=== PATIENT | male | born 1945 | race Caucasian/White ===

== ENCOUNTER 2016-07-12 08:46 | Day surgery (SDC) | payer MEDICARE ==
[2016-07-06 15:14] VITALS: BMI 23.0
[~2016-07-12 08:46] MED LIST: LIDOCAINE 1% 20 ML VIAL (10MG/ML) FOR IV START INTRADERMA PRN
[2016-07-12 09:40] VITALS: RESP 16; TEMP 98
[2016-07-12] MEDS: LACTATED RINGERS 1,000 ML IV SCH ×2 (09:54→11:00)
[2016-07-12] MEDS ORDERED: GLYCOPYRROLATE 0.2 MG/ML 2 ML VIAL ONE (11:02)
[2016-07-12] MEDS ORDERED: PROPOFOL 10 MG/ML 20 ML VIAL IV ONE (11:02)
[2016-07-12] MEDS ORDERED: LIDOCAINE 1% INJ 10MG/ML (20 ML MDV) ONE (11:02)
--- NOTE | 2016-07-12 11:34 | P.PCN ---
Date of Procedure: 07/12/16 Procedure(s) Performed: Procedure: Esophagogastroduodenoscopy and biopsy. Preoperative diagnosis: Epigastric pain not responding to medical therapy. Postoperative diagnosis: 1. Moderately sized hiatal hernia with no obvious esophagitis or complicated reflux disease. 2. Mild gastritis and duodenitis. 3. Multiple biopsies obtained from the duodenum, antrum and esophagus. Preparation and sedation: Was provided by anesthesia. Brief clinical history: The patient is a 70-year-old male who is referred for this evaluation because of onset of stomach ache that he has been having for the last 3 months or so not responding to Zantac and more recently on omeprazole. The patient has history of rectal cancer and had low anterior resection in the past and has history of diverticulosis. His last colonoscopy with Dr. Dumont was within the last year or so. This evaluation is to assess for peptic ulcer disease or other pathology. Procedure: With the patient on his left lateral decubitus position and after informed consent and adequate sedation, the Olympus-GIF 160 video upper endoscope was used and was advanced under direct vision through the cricopharyngeus down the esophagus. GE junction was around 36 cm from the incisors and there was a moderately sized hiatal hernia. There was no evidence of esophagitis or complicated reflux disease. The stomach was then insufflated with air and inspected in detail including the retroflex view in the cardia. There was some mottling and erythema in the antrum but no ulcers or erosions. Pyloric channel did not show any ulcers. Duodenal bulb, post bulbar area and descending duodenum showed minimal erythema but no ulcers or erosions. I obtained multiple biopsies from the duodenum, antrum and esophagus then the endoscope was withdrawn. The patient tolerated the procedure well. Plan: The patient was reassured. Will await biopsy results. He will follow up with you as planned and I will be happy to see in the office of his symptoms persist.
[2016-07-12 11:45] VITALS: BP 158/68; PULSE 61
== END 2016-07-12 12:06 | disposition home or self-care (01) ==
LOC: ORWHC2ENDO 08:46
DX: K29.50 Unspecified chronic gastritis without bleeding (principal); K44.9 Diaphragmatic hernia without obstruction or gangrene; Z85.048 Personal history of other malignant neoplasm of rectum, rectosigmoid junction, and anus; K29.80 Duodenitis without bleeding; K21.0 Gastro-esophageal reflux disease with esophagitis; E78.5 Hyperlipidemia, unspecified; J44.9 Chronic obstructive pulmonary disease, unspecified; M06.9 Rheumatoid arthritis, unspecified; Z88.5 Allergy status to narcotic agent; Z88.8 Allergy status to other drugs, medicaments and biological substances
CPT/HCPCS: 88305; 88342; 43239; J2001; J2704

== ENCOUNTER → 2016-08-04 | Outpatient (CLI) | payer MEDICARE ==
--- NOTE | 2016-08-04 09:28 | US ---
EXAMINATION TYPE: US abdomen complete DATE OF EXAM: 08/04/2016 7:40 AM COMPARISON: None CLINICAL HISTORY: 70-year-old male K44.9 Hiatal hernia,R10.13 epigastric pain. Hx of AAA repair a few years ago. TECHNIQUE: Multiple sonographic images of the abdomen are obtained. FINDINGS: Liver Length: 15.3 cm Gallbladder Wall: 0.2 cm CHD: 7.3 mm Spleen: 9.4 cm Right Kidney: 10.2 x 5.8 x 4.5 cm Left Kidney: 11.3 x 5.2 x 4.0 cm Pancreas: body and tail not visualized due to overlying bowel gas Liver: Overall homogeneous echotexture without focal lesion. Gallbladder: No abnormal gallbladder distention, wall thickening, pericholecystic fluid, or shadowin g calculi. Evidence for sonographic Black's sign: neg CBD: Mildly dilated. Spleen: suboptimally visualized due to overlying bowel gas Right Kidney: No hydronephrosis. Multiple cysts. Largest seen lower pole = 2.6 x 2.6 x 2.1 cm Left Kidney: No hydronephrosis. There are multiple cysts. Largest seen in the mid pole measures up to 2.4 cm. There is a hypoechoic lesion medially at the upper pole measuring 1.2 cm probably represen ting a complicated cyst. Upper IVC: Grossly unremarkable Abd Aorta: portions not well visualized due to overlying bowel gas IMPRESSION: 1. The bile duct is mildly dilated at 7.3 mm. This may be acceptable given the patient's age. Correla te with alkaline phosphatase and bilirubin levels. 2. Bilateral renal cysts measuring up to 2.6 cm. A 1.2 cm left upper pole cortical lesion is hypoecho ic. This could represent a proteinaceous or hemorrhagic cyst versus a small early solid mass. The for trisha is favored. Six-month follow-up renal ultrasound recommended.
== END | disposition home or self-care (01) ==
LOC: RADUSWWP 06:54
PROVIDERS: ATTEND Family Medicine
DX: K83.8 Other specified diseases of biliary tract (principal); N28.1 Cyst of kidney, acquired
CPT/HCPCS: 76700

== ENCOUNTER → 2017-08-04 | Outpatient (CLI) | payer MEDICARE ==
--- NOTE | 2017-08-04 12:41 | CT ---
EXAMINATION TYPE: CT abdomen pelvis w con DATE OF EXAM: 08/04/2017 COMPARISON: NONE HISTORY: Generalized abdominal pain CT DLP: 1028 mGycm Automated exposure control for dose reduction was used. TECHNIQUE: Helical acquisition of images from the lung bases through the pelvis have been completed. CONTRAST: Performed with Oral Contrast and with IV Contrast, patient injected with 100 mL of Isovue 300. FINDINGS: Intrathoracic stomach is again noted. LUNG BASES: No significant abnormality is appreciated. AORTA: Interval improvement in diameter of the patient's abdominal aorta compatible with postsurgica l change status post abdominal aortic resection, common femoral limbs, external iliac, common femoral arteries are patent. Internal iliac artery on the right is patent, on the left and may be filling re trograde. LIVER/GB: No significant abnormality is appreciated. PANCREAS: No significant abnormality is seen. SPLEEN: No significant abnormality is seen. ADRENALS: No significant abnormality is seen. KIDNEYS: Hyperdense foci associated with the right kidney are again noted and could possibly represen t proteinaceous cyst, there are cortical cysts associated with the left kidney as on prior. REPRODUCTIVE ORGANS: No significant abnormality is seen BOWEL: Multiple bowel loops show focal areas of wall thickening which are indeterminate. Surgical cl ips present in the rectosigmoid junction, rectum.. FREE AIR: No Free Air visible. ASCITES: None visible. PELVIC ADENOPATHY: None visualized. RETROPERITONEAL ADENOPATHY: No Retroperitoneal Adenopathy visible. URINARY BLADDER: No significant abnormality is seen. OSSEOUS STRUCTURES: Suspect bilateral spondylolysis at L5 as on prior exam, there is multilevel face t arthropathy, degenerative disc change. IMPRESSION: NONSPECIFIC WALL THICKENING NOTED WITHIN PREDOMINANTLY SMALL BOWEL LOOPS IS AN INDETERMINATE FINDING. THERE COULD BE LACK OF DISTENTION, ENTERITIS OR INFLAMMATORY CHANGE PRESENT. FINDINGS IN THE RIGHT K IDNEY DESCRIBED ARE RELATIVELY STABLE. POSTOP CHANGES. Additional findings above.
== END ==
LOC: RADCTMAIN 09:41
PROVIDERS: ATTEND Family Medicine
DX: N28.1 Cyst of kidney, acquired (principal); K21.9 Gastro-esophageal reflux disease without esophagitis; Z98.890 Other specified postprocedural states
CPT/HCPCS: 74177; Q9967

== ENCOUNTER → 2017-09-08 | Outpatient (CLI) | payer MEDICARE ==
--- NOTE | 2017-09-08 09:08 | FL ---
EXAMINATION TYPE: FL UGI w small bowel DATE OF EXAM: 09/08/2017 COMPARISON: CT abdomen and pelvis August 04, 2017 and older study July 11, 2013 HISTORY: Abnormal CT, complains of lower abdominal pain. History of partial colectomy for colon cance r. TECHNIQUE: A double contrast UGI study is performed with small bowel follow through. A total of 1 mi nute 31 seconds of fluoroscopic time was utilized during procedure. Approximately 25 spot images were acquired during procedure. FINDINGS: Sheet Music Salesperson image of the abdomen shows numerous clips mid abdomen and overlying pelvis from prio r colonic surgery. There is overall nonobstructive bowel gas pattern The esophagus shows some dysmotility with abnormal secondary and tertiary contractions. There is pers istent large hiatal hernia or intrathoracic stomach that has malrotation or mixed twisting pattern, t his is chronic in age as is back identified on 2014 CT without significant interval change. Majority of stomach is above the diaphragm with mild to moderate gastric fold prominence. No daquan ul cer disease. Occasional episodes of gastroesophageal reflux are identified during real-time performan ce of exam. The duodenal bulb and sweep redemonstrated a 3 cm diverticulum along mesenteric surface o f second portion. The small bowel study shows rapid transit to the colon in less than 10 minutes. There is normal muco baldev fold pattern throughout the small bowel on current study with particular attention to proximal sm all bowel at area of CT concern. There is no evidence of any stricture or filling defect noted. The terminal ileum is grossly unremarkable. IMPRESSION: Redemonstration of fixed large hiatal hernia or intrathoracic stomach with abnormal twist ing pattern, there is esophageal dysmotility and gastroesophageal reflux. There is mild to moderate g astritis in the intrathoracic stomach. Incidental duodenal diverticulum. Unusual fairly rapid passage of ingested material to colonic level of uncertain clinical significance. No suspicion for active en teritis currently.
== END | disposition home or self-care (01) ==
LOC: RADFLMAIN 07:43
PROVIDERS: ATTEND Surgery
DX: K21.9 Gastro-esophageal reflux disease without esophagitis (principal); K22.4 Dyskinesia of esophagus; K29.70 Gastritis, unspecified, without bleeding
CPT/HCPCS: 74245

== ENCOUNTER → 2019-02-12 | Outpatient (CLI) | payer MEDICARE ==
--- NOTE | 2019-02-12 14:13 | CT ---
EXAMINATION TYPE: CT abdomen pelvis w con DATE OF EXAM: 02/12/2019 COMPARISON: 08/04/2017 HISTORY: 73-year-old male periumbilical pain with history of prior umbilical hernia repair. TECHNIQUE: Contiguous axial scanning of the abdomen and pelvis following administration of 80 ml Isov ue 300 IV contrast. Delayed images through the kidneys and coronal/sagittal reconstructions performe d. CT DLP: 907 mGycm Automated exposure control for dose reduction was used. FINDINGS: Heart normal size without pericardial effusion. Lung bases clear without pleural effusion. Large hiatal hernia containing the majority of the stomach in the lower thorax. Subcentimeter hypodensity in segment 3 and segment IVb left liver lobe too small for accurate CT dorcas acterization, stable from 2018 compatible with cysts. Stable mild prominence of the bile duct. Small diverticulum of the second portion of the duodenum projecting to the pancreatic region. Portal venous system is patent. Gallbladder, adrenal glands, spleen, pancreas appear within normal limits. Multiple bilateral renal cysts are redemonstrated, largest measuring 2.8 cm on the right and 2.0 cm o n the left. A mildly complex and complicated cysts with thin internal septation at the right lower po le measures 3.4 cm versus 3.3 cm, previously. It shows no change in density between the portal venous phase and delayed kidney images with attenuation of around 55 Hounsfield units compatible with a ros aceous or hemorrhagic cyst with mild complexity. An additional indeterminate 1.3 cm cortical lesion anterior upper to mid pole left kidney previously measured 1.1 cm. Indolent behavior suggests a benign etiology here as well. 7 mm cortical hypodensity anterior lower pole left kidney previously measured 5 mm. Again, benign etiology is suggested. No dilated small bowel, free fluid, or free air. Aortobiiliac stent grafts are present. No endoleak is identified. Overall aortic caliber of 2.5 cm no t significantly changed. There is aortic ectasia of the thoracoabdominal junction at 2.8 cm. Moderate stool burden. No pericolonic inflammatory change. Prior mesh repair along the ventral epigastric region. No evident recurrent hernia is identified here . No other ventral abdominal wall hernia. Prominent distention of the urinary bladder. Prostate gland measures 4.2 cm wide. Post surgical changes at the rectoanal junction with associated perirectal thickening, unchanged from 08/04/2017 suggesting postsurgical change or redundant tissue. No abnormal fluid collection the pelvi s or pelvic lymphadenopathy. Bones: Mild degenerative changes at the hips. Moderate to severe degenerative changes of bilateral SI joints. Advanced hypertrophic facet arthropathy throughout the lumbar spine with Baastrup's disease and accentuated lumbar lordosis. Grade 1 anterolisthesis at L3-L4 and L4-L5 and grade 1 retrolisthesi s at T12-L1 and L1-L2. Severe degenerative disc disease L1-L2. IMPRESSION: 1. PRIOR MESH REPAIR ALONG THE VENTRAL EPIGASTRIUM. NO RECURRENT HERNIA IS IDENTIFIED HERE. NO OTHER VENTRAL ABDOMINAL WALL HERNIA. 2. NUMEROUS RENAL LESIONS MEASURING UP TO 3.4 CM, A COUPLE OF WHICH REPRESENT HEMORRHAGIC OR PROTEINA CEOUS CYSTS. ONE IN THE RIGHT LOWER POLE IS MILDLY COMPLEX WITH A THIN SEPTATION. A FEW OF THESE ARE SLIGHTLY LARGER FROM 08/04/2017. HOWEVER, RELATIVE STABILITY FROM THAT TIME SUPPORTS A BENIGN ETIOLOGY. 3. POST SURGICAL CHANGE WITH PRIOR RESECTION AND ANASTOMOSIS AT THE RECTOANAL JUNCTION. PERIRECTAL SO FT TISSUE THICKENING AT THIS LEVEL IS STABLE FROM 08/04/2017, LIKELY REDUNDANT TISSUE OR POSTSURGICAL CHANGE. 4. REDEMONSTRATED LARGE HIATAL HERNIA CONTAINING NEARLY THE ENTIRE STOMACH WITHIN THE LOWER THORAX.
== END | disposition home or self-care (01) ==
LOC: RADCTMAIN 11:28
PROVIDERS: ATTEND Family Medicine
DX: K44.9 Diaphragmatic hernia without obstruction or gangrene (principal); N28.9 Disorder of kidney and ureter, unspecified; K62.89 Other specified diseases of anus and rectum; Z98.890 Other specified postprocedural states; Z01.812 Encounter for preprocedural laboratory examination
CPT/HCPCS: 82565; 84520; 74177; 36415; Q9967 ×2

== ENCOUNTER 2019-12-27 07:32 | Day surgery (SDC) | payer MEDICARE ==
[~2019-12-27 07:32] MED LIST changes: +LACTATED RINGERS 1,000 ML IV SCH; +LIDOCAINE 1% (10MG/ML) FOR IV START INTRADERMA PRN; -LIDOCAINE 1% 20 ML VIAL (10MG/ML) FOR IV START INTRADERMA PRN
[2019-12-27 08:34] VITALS: RESP 16; TEMP 96.7
[2019-12-27] MEDS ORDERED: PROPOFOL 10 MG/ML 20 ML VIAL IV ONE (09:12)
[2019-12-27] MEDS ORDERED: LIDOCAINE 1% INJ 10MG/ML (20 ML MDV) ONE (09:12)
--- NOTE | 2019-12-27 09:33 | P.PCN ---
Date of Procedure: 12/27/19 Procedure(s) Performed: BRIEF HISTORY: Patient is a 74-year-old pleasant white scheduled for an elective colonoscopy as a part of surveillance of prior history of colon cancer diagnosed in 1996. Last colonoscopy was 4 years ago. PROCEDURE PERFORMED: Colonoscopy with snare polypectomy. PREOPERATIVE DIAGNOSIS: History of colon cancer status post resection in 1996. IV sedation per Anesthesia. PROCEDURE: After informed consent was obtained, the patient, was brought into the endoscopy unit. IV sedation was administered by Anesthesia under continuous monitoring. Digital rectal examination was normal. Initially the Olympus CF-160 flexible video colonoscope was then inserted in the rectum, gradually advanced into the cecum without any difficulty. Careful examination was performed as the scope was gradually being withdrawn. Ileocecal valve and the appendiceal orifice were visualized and appeared normal. Prep was excellent. In the base of the cecum there were 2 polyps measuring 5 mm and 6 mm in size both of which were removed by snare polypectomy. Mucosa of the cecum, ascending colon, transverse colon, descending colon appeared normal. The sigmoid colon there were 2 polyps measuring 5 mm in size both of which were removed by snare polypectomy. Moderate left-sided diverticulosis seen. Rest of the, sigmoid colon, and rectum appeared normal. Retroflexion was performed in the rectum and no lesions were seen. The patient tolerated the procedure well. IMPRESSION: 5 mm and 6 mm cecal polyp status post polypectomy 5 mm 2 sigmoid polyps status post polypectomy Scattered sigmoid diverticulosis RECOMMENDATIONS: Findings of this examination were discussed with the patient as well as his family. He was advised to follow with the biopsy results. If the biopsy shows an adenoma he can have a repeat colonoscopy in 3 years
[2019-12-27 10:06] VITALS: BP 142/65; PULSE 47
== END 2019-12-27 10:15 | disposition home or self-care (01) ==
LOC: ORWHC2ENDO 07:32
PROVIDERS: ATTEND Internal Medicine Gastroenterology
DX: Z12.11 Encounter for screening for malignant neoplasm of colon (principal); D12.5 Benign neoplasm of sigmoid colon; K63.5 Polyp of colon; K57.30 Diverticulosis of large intestine without perforation or abscess without bleeding; J44.9 Chronic obstructive pulmonary disease, unspecified; K21.9 Gastro-esophageal reflux disease without esophagitis; E78.5 Hyperlipidemia, unspecified; M06.9 Rheumatoid arthritis, unspecified; Z85.038 Personal history of other malignant neoplasm of large intestine; Z90.49 Acquired absence of other specified parts of digestive tract; Z88.5 Allergy status to narcotic agent; Z88.8 Allergy status to other drugs, medicaments and biological substances; Z79.1 Long term (current) use of non-steroidal anti-inflammatories (NSAID); Z79.899 Other long term (current) drug therapy
CPT/HCPCS: 88305; 45385; J2001; J2704

== ENCOUNTER → 2020-06-02 | Outpatient (CLI) | payer MEDICARE ==
--- NOTE | 2020-06-02 14:54 | XR ---
EXAM TYPE: LUMBAR SPINE X RAY SERIES COMPARISON: NONE HISTORY: Pain TECHNIQUE: 4 views are submitted. FINDINGS: Alignment is anatomic. The pedicles are intact. The transverse processes are intact. There is a 1 spinal listhesis L3 on L4 and L4 on L5 and L5 and S1. Severe degenerative disc disease at L5-S1 and L 1-L2 with moderate changes at the remaining levels. Multilevel facet arthropathy. Postsurgical change s are noted. Surgical clips seen in the abdomen and pelvis. Diffuse osteopenia with curvature of the spine. Arthropathy of the SI joints. IMPRESSION: 1. Multilevel moderate to severe degenerative disc disease with multilevel anterolisthesis as discuss ed above. Multilevel foraminal encroachment suspected. 2. Bilateral SI joint arthropathy
== END ==
LOC: RADXRYALE 14:35
PROVIDERS: ATTEND Physician Assistant Medical
DX: M51.37 Other intervertebral disc degeneration, lumbosacral region (principal); M43.17 Spondylolisthesis, lumbosacral region
CPT/HCPCS: 72110

== ENCOUNTER → 2021-03-01 | Outpatient (CLI) | payer MEDICARE ==
--- NOTE | 2021-03-01 15:51 | XR ---
Lumbosacral spine HISTORY: M545 LBP, LT FOOT PAIN 5 views of lumbosacral spine correlated to prior exam 06/02/2020 There is levoscoliosis centered at the mid lumbar spine, S-shaped thoracic lumbar scoliosis noted. An terolisthesis grade 1 L4-5. Lumbar vertebral bodies show preserved height. Loss of disc height is pre sent intervertebral levels especially L5-S1, L4-5, vacuum phenomenon present at L5-S1 and L1-2, T11-T 12, T12-L1. There is no evident spondylolysis. Bone mineralization is reduced. Atherosclerotic vascul ar calcifications are present in the aorta iliac distribution. Postop changes are present, there are surgical clips in the pelvis, left paraspinal location. Sclerosis present in the posterior elements o f the lower lumbar spine. IMPRESSION: There is degenerative disc disease, facet arthropathy, scoliosis and osteopenia similar t o prior exam with spondylolisthesis L4-5. Postop changes.
--- NOTE | 2021-03-01 15:53 | XR ---
Left foot HISTORY: Left foot pain 3 views the left foot There is a hallux valgus deformity, medial subluxation at the metatarsophalangeal joint. There is a m etallic loop present at the level of the proximal aspect of the proximal phalanx of the first digit, prior osteotomy has been performed. Metallic fluid also present within the region of the proximal sec ond metatarsal. Question postop change to the proximal interphalangeal joint of the second and third digits, there is joint space widening, marginal spurring which could be due to underlying arthropathy or postop change. IMPRESSION: Postop changes, hallux valgus deformity and additional findings above.
== END | disposition home or self-care (01) ==
LOC: RADXRYALE 15:23
PROVIDERS: ATTEND Physician Assistant
DX: M51.36 Other intervertebral disc degeneration, lumbar region (principal); M47.817 Spondylosis without myelopathy or radiculopathy, lumbosacral region; M41.85 Other forms of scoliosis, thoracolumbar region; M85.88 Other specified disorders of bone density and structure, other site; M20.12 Hallux valgus (acquired), left foot
CPT/HCPCS: 72110

== ENCOUNTER → 2023-03-03 | Outpatient (CLI) | payer MEDICARE ==
--- NOTE | 2023-03-03 12:09 | BD ---
EXAMINATION TYPE: Axial Bone Density DATE OF EXAM: 03/03/2023 CLINICAL HISTORY: 77 years old Male. ICD-10 CODE: M85.80 OT DISRD OF BONE DENSITY [id number] Height: 67.5 Weight: 148.2 FRAX RISK QUESTIONS: Alcohol (3 or more units per day): no Family History (Parent hip fracture): no Glucocorticoids (More than 3mos): no History of Fracture in Adulthood: yes Secondary Osteoporosis: 1. Type 1 Diabetes: no 2. Hyperthyroidism: no 3. Menopause before 45: na 4. Malnutrition: no 5. Chronic liver disease: no Rheumatoid Arthritis: yes Current Tobacco Use: no RISK FACTORS HISTORY OF: Hip Fracture (Right/Left): no Spine Fracture: no History of Wrist Fracture: no Surgery to Spine/Hip(right/left)/Wrist (right/left): yes L4-L5 When: 2020 Family History of Osteoporosis: Father Active: yes Diet low in dairy products/other sources of calcium: no Postmenopausal woman: na Lost more than 2 inches in height since high school: yes Frequent falls: no Poor Health: no Hyperparathyroidism: no Adrenal Insufficiency: no MEDICATIONS: Prednisone or other steroids: no Thyroid Medications: no Osteoporosis Medications: no Additional Medications: Zinc, Vit D, Celebrex Additional History: Pt states he has lost 6 inches of height since young adult EXAM MEASUREMENTS: Bone mineral density about the R hip (g/cm2): 0.789 Bone mineral density about the L hip (g/cm2): 0.743 T Score values are as follows: -----R Neck: -1.6 -----L Neck: -1.3 -----R Total: -1.7 -----L Total: -2.1 Z Score values are as follows: -----R Neck: -0.3 -----L Neck: 0.0 -----R Total: -1.0 -----L Total: -1.3 Baseline Study FRAX%s: The graph provided illustrates a 15.1 % chance for a major osteoporotic fx and a 5.6% chance for the hips probability for fx in 10 years time. IMPRESSION: Osteopenia (T Score between -2.5 and -1). There is slightly increased risk of fracture and the patient may be considered for treatment. Re-Screen 2-5 years. NOTE: T-SCORE=SD OF THE YOUNG ADULT MEAN.
== END | disposition home or self-care (01) ==
LOC: RADBDWWP 07:04
PROVIDERS: ATTEND Family Medicine
DX: M85.89 Other specified disorders of bone density and structure, multiple sites (principal); M51.36 Other intervertebral disc degeneration, lumbar region; M06.9 Rheumatoid arthritis, unspecified
CPT/HCPCS: 77080

== ENCOUNTER → 2024-07-19 | Outpatient (CLI) | payer MEDICARE ==
--- NOTE | 2024-07-19 10:08 | XR ---
EXAMINATION TYPE: XR abdomen 2V DATE OF EXAM: 07/19/2024 10:03 AM COMPARISON: None. CLINICAL INDICATION: Male, 78 years old with history of R109 ABD PAIN, TECHNIQUE: XR abdomen 2V views of the abdomen are submitted. FINDINGS: There is no convincing evidence of pneumoperitoneum. The Bowel gas pattern is nonspecific and nonobstructive. No sizable air-fluid levels are seen. No mass effects are noted. No renal calcifications are identified. Postoperative changes lumbar spine. IMPRESSION: 1. Nonspecific nonobstructive bowel gas pattern [facility], , 07/19/2024 10:06 AM
== END | disposition home or self-care (01) ==
LOC: RADXRYALE 09:48
PROVIDERS: ATTEND Family Medicine
DX: R10.9 Unspecified abdominal pain (principal)
CPT/HCPCS: 74019

== ENCOUNTER 2024-09-02 00:22 | Emergency (ER) | payer MEDICARE ==
[2024-09-02 00:53] VITALS: RESP 18; TEMP 97.8
[2024-09-02 02:35] LABS: Basophils # (A) 0.02 10*3/uL (0.00-0.10); Basophils % (A) 0.1 %; HCT 39.7 % (39.6-50.0); HGB 13.3 g/dL (13.0-17.0); Lymphocytes # (A) 0.66 10*3/uL (0.90-5.00); Lymphocytes % (A) 4.1 %; MCH 29.4 pg (27.0-32.0); MCHC 33.5 g/dL (32.0-37.0); MCV 87.8 fL (80.0-97.0); Mean Platelet Volume 9.5 fL (9.5-12.2); Monocytes # (A) 0.78 10*3/uL (0.20-1.00); Monocytes % (A) 4.9 %; Neutrophils # (A) 14.48 10*3/uL (1.80-7.70); Neutrophils % (A) 90.5 %; Platelet Count 333 10*3/uL (140-440); RBC 4.52 10*6/uL (4.40-5.60); RDW 15.1 % (11.5-14.5)
[2024-09-02 02:52] LABS: ALT 11 U/L (4-49); AST 24 U/L (17-59); African American GFR (CKD) 67 (>60 ml/min/1.73 sqM); Albumin 4.3 g/dL (3.5-5.0); Alkaline Phosphatase 72 U/L (38-126); Amylase 92 U/L (30-110); Anion Gap 11 mmol/L; Blood Urea Nitrogen 23 mg/dL (9-20); Calcium 9.8 mg/dL (8.4-10.2); Carbon Dioxide 25 mmol/L (22-30); Chloride 102 mmol/L (98-107); Glucose 152 mg/dL (74-99); Lipase 162 U/L (23-300); Non-African American GFR(CKD) 58 (>60 ml/min/1.73 sqM); Potassium 4.4 mmol/L (3.5-5.1); Sodium 138 mmol/L (137-145); Total Bilirubin 0.5 mg/dL (0.2-1.3); Total Protein 7.2 g/dL (6.3-8.2)
[2024-09-02] MEDS: MORPHINE SULFATE 4 MG/ML SYRINGE IV STA (03:02)
[2024-09-02 03:03] LABS: Partial Thromboplastin Time 26.1 sec (22.0-30.0); Prothrombin Time 10.8 sec (10.0-12.5)
[2024-09-02] MEDS: ONDANSETRON 4 MG/2 ML VIAL IVP STA (05:29)
--- NOTE | 2024-09-02 05:46 | ED ---
General Adult HPI - General Chief complaint: Abdominal Pain Stated complaint: Abd pain, NV Time Seen by Provider: 09/02/24 00:53 Source: patient, EMS Mode of arrival: EMS Limitations: no limitations - History of Present Illness Initial comments: This patient is a 79-year-old man who presents to have evaluation of epigastric abdominal pain as well as nausea and vomiting. The patient noticed the pain starting about 6 or 7 hours before arriving in emergency. Patient described the pain as aching, constant, has not noted worsening or relieving factors. He did have vomiting but no coffee-ground or bloody emesis. Patient has not noticed change in bowel movements or urination. The patient also states that he has had worsening of back pain, indicating bilateral lower back. He does have chronic pain but states that it is feeling a little worse today. Patient denies symptoms into the legs, weakness or numbness. No chest pain, cough, shortness o f breath. -: hour(s) Location: abdomen Radiation: non-radiation Severity scale (1-10): 9 Quality: aching, sharp Consistency: constant Improves with: none Worsens with: none Associated Symptoms: nausea/vomiting Treatments Prior to Arrival: none - Related Data Home Medications Medication Instructions Recorded Confirmed Atorvastatin [Lipitor] 40 mg PO HS 09/10/13 12/27/19 Folic Acid(Dose Unknown) 1 tab PO DAILY 07/06/16 12/27/19 Ibuprofen [Motrin] 800 mg PO BID PRN 07/06/16 12/27/19 Multivitamins, Thera [Multivitamin 1 tab PO DAILY 07/06/16 12/27/19 (formulary)] Biotin 1 cap PO DAILY 12/25/19 12/27/19 Cholecalciferol [Vitamin D3 (25 1 tab PO DAILY 12/25/19 12/27/19 Mcg = 1000 Iu)] Krill Oil 1 cap PO DAILY 12/25/19 12/27/19 Pantoprazole [Protonix] 40 mg PO QAM 12/25/19 12/27/19 Protection Green Supplement 1 dose PO DAILY 12/25/19 12/27/19 Previous Rx's Medication Instructions Recorded Ondansetron Odt [Zofran ODT] 4 mg PO Q8HR PRN #10 tab 09/02/24 Allergies Allergy/AdvReac Type Severity Reaction Status Date / Time meperidine [From Demerol] Allergy Vomiting Verified 12/27/19 08:19 rice Allergy Unknown Verified 12/27/19 08:19 alprazolam [From Xanax] AdvReac short Verified 12/27/19 08:19 temper Review of Systems ROS Statement: Those systems with pertinent positive or pertinent negative responses have been documented in the HPI. ROS Other: All systems not noted in ROS Statement are negative. Constitutional: Denies: fever, chills Respiratory: Denies: cough, dyspnea, wheezes Cardiovascular: Denies: chest pain, palpitations, edema, syncope Gastrointestinal: Reports: as per HPI, abdominal pain, nausea, vomiting. Denies: diarrhea, constipation, hematemesis, hematochezia Genitourinary: Denies: dysuria, hematuria, testicular pain Musculoskeletal: Reports: as per HPI, back pain Skin: Denies: rash Neurological: Denies: headache, weakness Hematological/Lymphatic: Denies: easy bleeding Past Medical History Past Medical History: Cancer, COPD, GERD/Reflux, Hyperlipidemia, Rheumatoid Arthritis (RA) Additional Past Medical History / Comment(s): . History of Any Multi-Drug Resistant Organisms: None Reported Past Surgical History: Bowel Resection, Hernia Repair, Joint Replacement, Ortho pedic Surgery Additional Past Surgical History / Comment(s): Win knee replacements. Win foot surgery. AAA repair. Incisional hernia repair with mesh Past Anesthesia/Blood Transfusion Reactions: No Reported Reaction Past Psychological History: Anxiety Smoking Status: Former smoker Past Alcohol Use History: None Reported Past Drug Use History: Marijuana - Past Family History Mother Family Medical History: No Reported History General Exam General appearance: alert, in no apparent distress Head exam: Present: atraumatic, normocephalic Eye exam: Present: normal appearance. Absent: scleral icterus, conjunctival injection ENT exam: Present: normal oropharynx, mucous membranes moist Neck exam: Present: normal inspection, full ROM Respiratory exam: Present: normal lung sounds bilaterally. Absent: respiratory distress, wheezes, rales, rhonchi, stridor, accessory muscle use Cardiovascular Exam: Present: regular rate, normal rhythm, normal heart sounds. Absent: systolic murmur, diastolic murmur, rubs, gallop GI/Abdominal exam: Present: soft, tenderness (No epigastric tenderness, no rebound or guarding). Absent: distended, guarding, rebound, rigid, mass, pulsatile mass, hernia Extremities exam: Present: normal inspection, normal capillary refill. Absent: pedal edema, calf tenderness Back exam: Present: normal inspection. Absent: CVA tenderness (R), CVA tenderness (L), vertebral tenderness Neurological exam: Present: alert Skin exam: Present: warm, dry, intact, normal color. Absent: rash Course Vital Signs 09/02/24 09/02/24 09/02/24 00:47 02:09 03:09 Temperature 97.8 F Pulse Rate 71 85 73 Respiratory 18 18 18 Rate Blood Pressure 171/78 177/87 O2 Sat by Pulse 96 96 97 Oximetry 09/02/24 06:11 Temperature Pulse Rate 72 Respiratory 18 Rate Blood Pressure 151/85 O2 Sat by Pulse 96 Oximetry EKG Findings - EKG Results: EKG: interpreted by GONSALO, sinus rhythm (Rate 68 bpm), normal ST/T - Blocks, [place], Hypertrophy, ST Abn: AV and intraventricular conduction: right bundle branch block (fixed/intermittent, complete/incomplete) (Incomplete) QRS axis and voltage: right axis deviation (+90 to +180) (Borderline) Medical Decision Making - Medical Decision Making Patient is 79-year-old man here with epigastric abdominal pain. He also noted that his chronic back pain seemed worse than usual. On arrival patient is hypertensive and given this combination of things the patient had workup including labs and also CT scan which did not indicate evidence of aneurysm/dissection. The patient did have improvement with the medication here. The patient was feeling better and wanting to go home. We did discuss the hiatal hernia and I suspect that this may be the cause of his symptoms. The patient was feeling better, declined admission, and patient will follow-up regarding the hiatal hernia Was pt. sent in by a medical professional or institution (, PA, [employer], urgent care, hospital, or skilled nursing...) When possible be specific @ -[No] Did you speak to anyone other than the patient for history (EMS, parent, family, police, friend...)? What history was obtained from this source @ -[No] Did you review nursing and triage notes (agree or disagree)? Why? @ -[I reviewed and agree with nursing and triage notes] Were old charts reviewed (outside hosp., previous admission, EMS record, old EKG, old radiological studies, urgent care reports/EKG's, skilled nursing records)? Report findings @ -[No old charts were reviewed] Differential Diagnosis (chest pain, altered mental status, abdominal pain women, abdominal pain men, vaginal bleeding, weakness, fever, dyspnea, syncope, headache, dizziness, GI bleed, back pain, seizure, CVA, palpatations, mental health, musculoskeletal)? @ -[Differential Abdominal Pain Men: Appendicitis, cholecystitis, diverticulosis, ischemic bowel, pancreatitis, hepatitis, UTI, gastroenteritis, AAA, incarcerated hernia, bowel obstruction, constipation, inflammatory bowel, hepatitis, peptic ulcer disease, splenic infarction, perforated viscus, testicular torsion, this is not meant to be an all-inclusive list Differential Back Pain: Strain, zoster, cauda equina syndrome, epidural abscess, vertebral osteomyelitis, discitis, fracture, subluxation, disc herniation, DJD, spinal stenosis, dissection, AAA, pancreatitis, peptic ulcer disease, pyelonephritis, kidney stone, this is not meant to be an all-inclusive list. EKG interpreted by me (3pts min.). @ -[I interpreted as above X-rays interpreted by me (1pt min.). @ -[None done] CT interpreted by me (1pt min.). @ -[I interpreted as above U/S interpreted by me (1pt. min.). @ -[None done] What testing was considered but not performed or refused? (CT, X-rays, U/S, labs)? Why? @ -[None] What meds were considered but not given or refused? Why? @ -[None] Did you discuss the management of the patient with other professionals (professionals i.e. , PA, [employer], lab, RT, psych nurse, adoption social worker, cold working supervisor, teacher, chief human resources officer, residential case manager)? Give summary @ -[No] Was smoking cessation discussed for >3mins.? @ -[No] Was critical care preformed (if so, how long)? @ -[No] Were there social determinants of health that impacted care today? How? (Homelessness, low income, unemployed, alcoholism, drug addiction, transportation, low edu. Level, literacy, decrease access to med. care, assisted, rehab)? @ -[No] Was there de-escalation of care discussed even if they declined (Discuss DNR or withdrawal of care, Hospice)? DNR status @ -[No] What co-morbidities impacted this encounter? (DM, HTN, Smoking, COPD, CAD, Cancer, CVA, ARF, Chemo, Hep., AIDS, mental health diagnosis, sleep apnea, morbid obesity)? @ -[None] Was patient admitted / discharged? Hospital course, mention meds given and route, prescriptions, significant lab abnormalities, going to OR and other pertinent info. @ -[As above Undiagnosed new problem with uncertain prognosis? @ -[No] Drug Therapy requiring intensive monitoring for toxicity (Heparin, Nitro, Insulin, Cardizem)? @ -[No] Were any procedures done? @ -[No] Diagnosis/symptom? @ -[Acute abdominal pain Hiatal hernia Acute, or Chronic, or Acute on Chronic? @ -[Acute Uncomplicated (without systemic symptoms) or Complicated (systemic symptoms)? @ -[Uncomplicated Side effects of treatment? @ -[No] Exacerbation, Progression, or Severe Exacerbation? @ -[No] Poses a threat to life or bodily function? How? (Chest pain, USA, MS, pneumonia, PE, COPD, DKA, ARF, appy, cholecystitis, CVA, Diverticulitis, Homicidal, Suicidal, threat to staff... and all critical care pts) @ -[No] All treatments are based on ideal body weight as in ED triage - Lab Data Result diagrams: 09/02/24 02:18 09/02/24 02:18 Lab Results 09/02/24 09/02/24 09/02/24 Range/Units 02:18 02:18 02:18 WBC 16.00 H (4.50-10.00) 10*3/uL RBC 4.52 (4.40-5.60) 10*6/uL Hgb 13.3 (13.0-17.0) g/dL Hct 39.7 (39.6-50.0) % MCV 87.8 (80.0-97.0) fL MCH 29.4 (27.0-32.0) pg MCHC 33.5 (32.0-37.0) g/dL Plt Count 333 (140-440) 10*3/uL MPV 9.5 (9.5-12.2) fL Immature Gran % (Auto) 0.4 % Neutrophils % 90.5 % Lymphocytes % 4.1 % Monocytes % 4.9 % Eosinophils % 0.0 % Basophils % 0.1 % Immature Gran # 0.06 H (0.00-0.04) 10*3/uL Neutrophils # 14.48 H (1.80-7.70) 10*3/uL Lymphocytes # 0.66 L (0.90-5.00) 10*3/uL Monocytes # 0.78 (0.20-1.00) 10*3/uL Eosinophils # 0.00 L (0.04-0.35) 10*3/uL Basophils # 0.02 (0.00-0.10) 10*3/uL PT 10.8 (10.0-12.5) sec INR 1.0 (<1.2) APTT 26.1 (22.0-30.0) sec D-Dimer 2.48 H (<0.60) mg/L FEU Sodium 138 (137-145) mmol/L Potassium 4.4 (3.5-5.1) mmol/L Chloride 102 (98-107) mmol/L Carbon Dioxide 25 (22-30) mmol/L Anion Gap 11 mmol/L BUN 23 H (9-20) mg/dL Creatinine 1.21 (0.66-1.25) mg/dL Est GFR (CKD-EPI)AfAm 67 (>60 ml/min/1.73 sqM) Est GFR (CKD-EPI)NonAf 58 (>60 ml/min/1.73 sqM) Glucose 152 H (74-99) mg/dL Calcium 9.8 (8.4-10.2) mg/dL Magnesium 2.0 (1.6-2.3) mg/dL Total Bilirubin 0.5 (0.2-1.3) mg/dL AST 24 (17-59) U/L ALT 11 (4-49) U/L Alkaline Phosphatase 72 (38-126) U/L Troponin I (0.000-0.034) ng/mL Total Protein 7.2 (6.3-8.2) g/dL Albumin 4.3 (3.5-5.0) g/dL Amylase 92 (30-110) U/L Lipase 162 (23-300) U/L 09/02/24 Range/Units 02:18 WBC (4.50-10.00) 10*3/uL RBC (4.40-5.60) 10*6/uL Hgb (13.0-17.0) g/dL Hct (39.6-50.0) % MCV (80.0-97.0) fL MCH (27.0-32.0) pg MCHC (32.0-37.0) g/dL Plt Count (140-440) 10*3/uL MPV (9.5-12.2) fL Immature Gran % (Auto) % Neutrophils % % Lymphocytes % % Monocytes % % Eosinophils % % Basophils % % Immature Gran # (0.00-0.04) 10*3/uL Neutrophils # (1.80-7.70) 10*3/uL Lymphocytes # (0.90-5.00) 10*3/uL Monocytes # (0.20-1.00) 10*3/uL Eosinophils # (0.04-0.35) 10*3/uL Basophils # (0.00-0.10) 10*3/uL PT (10.0-12.5) sec INR (<1.2) APTT (22.0-30.0) sec D-Dimer (<0.60) mg/L FEU Sodium (137-145) mmol/L Potassium (3.5-5.1) mmol/L Chloride (98-107) mmol/L Carbon Dioxide (22-30) mmol/L Anion Gap mmol/L BUN (9-20) mg/dL Creatinine (0.66-1.25) mg/dL Est GFR (CKD-EPI)AfAm (>60 ml/min/1.73 sqM) Est GFR (CKD-EPI)NonAf (>60 ml/min/1.73 sqM) Glucose (74-99) mg/dL Calcium (8.4-10.2) mg/dL Magnesium (1.6-2.3) mg/dL Total Bilirubin (0.2-1.3) mg/dL AST (17-59) U/L ALT (4-49) U/L Alkaline Phosphatase (38-126) U/L Troponin I <0.012 (0.000-0.034) ng/mL Total Protein (6.3-8.2) g/dL Albumin (3.5-5.0) g/dL Amylase (30-110) U/L Lipase (23-300) U/L Disposition Clinical Impression: Hiatal hernia Disposition: HOME SELF-CARE Condition: Fair Instructions (If sedation given, give patient instructions): Hiatal Hernia (ED) Prescriptions: Ondansetron Odt [Zofran ODT] 4 mg PO Q8HR PRN #10 tab PRN Reason: Nausea Is patient prescribed a controlled substance at d/c from ED?: Yes Referrals: Bk [place] DO [Primary Care Provider] - 1-2 days
[2024-09-02 06:12] VITALS: BP 151/85; PULSE 72
--- NOTE | 2024-09-02 07:11 | CT ---
EXAM: CT Angiography Chest, Abdomen and Pelvis Without and With Intravenous Contrast CLINICAL HISTORY: ITS.REASON CT Reason: chest/back pain TECHNIQUE: Axial computed tomographic angiography images of the chest, abdomen and pelvis without and with intravenous contrast. CTDI is 6.1 mGy and DLP is 428 mGy-cm. This CT exam was performed using one or more of the following dose reduction techniques: automated exposure control, adjustment of the mA and/or kV according to patient size, and/or use of iterative reconstruction technique. MIP reconstructed images were created and reviewed. COMPARISON: No relevant prior studies available. FINDINGS: VASCULATURE: Aorta: No evidence of aortic aneurysm or dissection along the aorta or subsequent branches. Atherosclerotic disease. Pulmonary arteries: Unremarkable as visualized. No pulmonary embolism is identified. Great vessels of aortic arch: No acute findings. No dissection. No arterial occlusion or significant stenosis. Celiac trunk and mesenteric arteries: No acute findings. No occlusion or significant stenosis. Renal arteries: No acute findings. No occlusion or significant stenosis. Iliac arteries: No acute findings. No occlusion or significant stenosis. CHEST: Lungs: Moderate upper lobe prominent centrilobular emphysema. Patient may qualify for low-dose lung cancer screening CTs. No consolidation. Pleural space: Unremarkable. No significant effusion. No pneumothorax. Heart: Coronary artery calcifications. No cardiomegaly. No significant pericardial effusion. Mediastinum: Large hiatal hernia with intrathoracic stomach. No evidence of pneumatosis. If there is further concern, consider fluoroscopic imaging. ABDOMEN: Liver: Unremarkable. No mass. Gallbladder and bile ducts: Contracted gallbladder without findings to suggest cholecystitis. No ductal dilation. Pancreas: Unremarkable. No ductal dilation. No mass. Spleen: Unremarkable. No splenomegaly. Adrenals: Unremarkable. No mass. Kidneys and ureters: Simple bilateral renal cysts. No follow-up of these simple cysts is necessary. Interpolar left renal hypodensity measuring up to 2.1 cm. ACR White Paper guidelines (Sim, et al. JACR 2018; 15(2):264-273) recommend MRI or CT without and with intravenous contrast. No obstructing stones. No hydronephrosis. Stomach and bowel: Unremarkable. No obstruction. No mucosal thickening. PELVIS: Appendix: No findings to suggest acute appendicitis. Bladder: Unremarkable. No stones. No mass. Reproductive: Prostatic calcifications. CHEST, ABDOMEN and PELVIS: Intraperitoneal space: No free air. Bones/joints: Degenerative changes in the spine. No acute fracture. No dislocation. Soft tissues: Surgical clips within the pelvis. Lymph nodes: Unremarkable. No enlarged lymph nodes. Other findings: Multiple bilateral hypodensities, some of which too small to characterize. IMPRESSION: 1. No evidence of aortic aneurysm or dissection along the aorta or subsequent branches. 2. Contracted gallbladder without findings to suggest cholecystitis. 3. Large hiatal hernia with intrathoracic stomach. No evidence of pneumatosis. If there is further concern, consider fluoroscopic imaging. 4. Moderate upper lobe prominent centrilobular emphysema. Patient may qualify for low-dose lung cancer screening CTs. 5. Interpolar left renal hypodensity measuring up to 2.1 cm. ACR White Paper guidelines (Sim, et al. JACR 2018; 15(2):264-273) recommend MRI or CT without and with intravenous contrast. 6. No other acute findings. 7. Incidental findings as described.
== END 2024-09-02 06:12 | disposition home or self-care (01) ==
LOC: EC 00:22
DX: K44.9 Diaphragmatic hernia without obstruction or gangrene (principal); I45.10 Unspecified right bundle-branch block; Z88.5 Allergy status to narcotic agent; Z88.8 Allergy status to other drugs, medicaments and biological substances
CPT/HCPCS: 36415; 93005; 85379; 80053; 82150; 83690; 83735; 84484; 85025; 85610; 85730; 71275; 74174; 99284; 96374; 96375; J2270; J2405; Q9967